=== PATIENT | male | born 1985 | race American Indian/Alaskan Native ===

== ENCOUNTER 2016-11-02 10:31 | Inpatient (IN) | payer SELFPAY ==
[2016-11-02] MEDS ORDERED: DUONEB 0.5 MG-3 MG/3 ML SOLN IH ONE ×3 (10:51→16:40)
[2016-11-02] MEDS ORDERED: PROVENTIL IH ONE ×2 (11:26→11:31)
[2016-11-02] MEDS ORDERED: ATROVENT IH ONE ×3 (11:26→11:46)
[2016-11-02 12:04] LABS: Basophils % (Auto) 0.5 % (0.0-1.8); Eosinophils % (Auto) 8.8 % (0.0-4.3); Hematocrit 52.4 % (35.5-45.6); Mean Corpuscular HGB Conc 32 % (32-34); Mean Corpuscular Hemoglobin 27 pg (28-32); Mean Corpuscular Volume 83 fl (84-94); Platelet Count 261 K/mm3 (140-440); Red Blood Count 6.33 M/mm3 (3.65-5.03); Red Cell Distribution Width 13.5 % (13.2-15.2)
[2016-11-02 12:12] LABS: Blood Urea Nitrogen 12 mg/dL (9-20); Calcium 9.4 mg/dL (8.4-10.2); Carbon Dioxide 21 mmol/L (22-30); Glucose 106 mg/dL (75-100)
--- NOTE | 2016-11-02 12:29 | XRay Report ---
Chest 2 views: History: Shortness of breath. Findings: Normal cardiomediastinal silhouette. Trachea is midline. No consolidation, pneumothorax or pleural effusion. Impression: No acute cardiopulmonary findings.
[2016-11-02 12:33] LABS: Anion Gap 21 mmol/L; Chloride 105.3 mmol/L (98-107); Potassium 4.1 mmol/L (3.6-5.0); Sodium 143 mmol/L (137-145)
--- NOTE | 2016-11-02 13:30 | Emergency Department Report ---
ED General Adult HPI - General Chief complaint: Adult Asthma Stated complaint: RUSSEL/DIFF WALKING/JITTERS Time Seen by Provider: 11/02/16 13:27 Source: patient Mode of arrival: Ambulatory Limitations: No Limitations - History of Present Illness Initial comments: The patient states that he has been wheezing for the past few days. He stated that he "inhaled some pollen" on night. By Friday morning he was wheezing. He complains of chest tightness that is associated with his wheezing and alleviated by nebulized therapy. His son has a nebulizer which she has been using. He has a history of asthma himself but has never been admitted to the hospital. As far as he knows he has never had a prior EKG. He does not complain of tightness at this time or any time in excess of his wheezing. He has no radiating chest pain and no pleuritic pain. Denies any recent travel leg swelling or pain. He states that he has been coughing up yellow to green sputum. He denies hemoptysis. -: Gradual Location: chest Radiation: non-radiation Quality: other Consistency: now resolved Improves with: none Worsens with: none Associated Symptoms: cough, other (wheezing) Treatments Prior to Arrival: none - Related Data Allergies Allergy/AdvReac Type Severity Reaction Status Date / Time No Known Allergies Allergy Unverified 11/02/16 10:41 ED Review of Systems ROS: Stated complaint: RUSSEL/DIFF WALKING/JITTERS Other details as noted in HPI Constitutional: denies: chills, fever Eyes: denies: eye pain, eye discharge, vision change ENT: denies: ear pain, throat pain Respiratory: cough, shortness of breath, wheezing Cardiovascular: as per HPI, chest pain. denies: palpitations Endocrine: no symptoms reported Gastrointestinal: denies: abdominal pain, nausea, diarrhea Genitourinary: denies: urgency, dysuria Musculoskeletal: denies: back pain, joint swelling, arthralgia Skin: denies: rash, lesions Neurological: denies: headache, weakness, paresthesias Psychiatric: denies: anxiety, depression Hematological/Lymphatic: denies: easy bleeding, easy bruising ED Past Medical Hx - Past Medical History Hx Asthma: Yes - Surgical History Past Surgical History?: No - Social History Smoking Status: Never Smoker Substance Use Type: None ED Physical Exam - General Limitations: No Limitations General appearance: alert, in no apparent distress - Head Head exam: Present: atraumatic, normocephalic - Eye Eye exam: Present: normal appearance, PERRL, EOMI. Absent: scleral icterus - ENT ENT exam: Present: mucous membranes moist - Neck Neck exam: Present: normal inspection - Respiratory Respiratory exam: Present: wheezes (one plus bilaterally normal work of breathing). Absent: respiratory distress, accessory muscle use - Cardiovascular Cardiovascular Exam: Present: regular rate, normal rhythm. Absent: systolic murmur, diastolic murmur, rubs, gallop - GI/Abdominal GI/Abdominal exam: Present: soft, normal bowel sounds. Absent: distended, tenderness, guarding, rebound, rigid - Rectal Rectal exam: Present: deferred - Extremities Exam Extremities exam: Present: normal inspection. Absent: tenderness, pedal edema, calf tenderness - Back Exam Back exam: Present: normal inspection. Absent: CVA tenderness (R), CVA tenderness (L) - Neurological Exam Neurological exam: Present: alert, oriented X3, CN II-XII intact. Absent: motor sensory deficit - Psychiatric Psychiatric exam: Present: normal affect, normal mood - Skin Skin exam: Present: warm, dry, intact, normal color. Absent: rash ED Course Vital Signs 11/02/16 11/02/16 11/02/16 10:41 11:23 11:32 Temperature 98.1 F Pulse Rate 101 H Pulse Rate [ 102 H 103 H Anterior Bilateral Throughout] Pulse Rate [ 102 H 103 H Posterior Bilateral Throughout] Respiratory 24 Rate Respiratory 20 20 Rate [Anterior Bilateral Throughout] Respiratory 20 20 Rate [Posterior Bilateral Throughout] Blood Pressure 135/92 O2 Sat by Pulse 95 Oximetry 11/02/16 11/02/16 11:38 13:15 Temperature Pulse Rate Pulse Rate [ 103 H 112 H Anterior Bilateral Throughout] Pulse Rate [ 103 H 112 H Posterior Bilateral Throughout] Respiratory Rate Respiratory 20 20 Rate [Anterior Bilateral Throughout] Respiratory 20 20 Rate [Posterior Bilateral Throughout] Blood Pressure O2 Sat by Pulse Oximetry - Reevaluation(s) Reevaluation #1: Patient did have some degree of P pulmonale. Pulmonary hypertension is possibility. He has not been given steroids to my encounter. He was given IV Solu-Medrol as well as acne seems sulfate. He is admitted by Dr. Arellano to the hospitalist service. I also did order an echocardiogram and consideration of his EKG findings. Birney is somewhat right-sided. His chest x-ray did not show anything acute. He was given 1 dose of Levaquin. He is appropriate for admission to the medical floor. He is admitted in stable condition. 11/02/16 14:14 ED Medical Decision Making - Lab Data Result diagrams: 11/02/16 11:43 11/02/16 11:43 - EKG Data -: EKG Interpreted by Me EKG shows normal: sinus rhythm Rate: tachycardia - EKG Data Interpretation: no acute changes, other (P pulmonale borderline right axis) - Radiology Data interpreted by me: Chest x-ray showed no acute process Critical care attestation.: If time is entered above; I have spent that time in minutes in the direct care of this critically ill patient, excluding procedure time. ED Disposition Clinical Impression: Exacerbation of asthma Acute bronchitis Qualifiers: Bronchitis organism: unspecified organism Qualified Code(s): J20.9 - Acute bronchitis, unspecified Disposition: OP ADMITTED IP TO THIS HOSP Is pt being admited?: Yes Does the pt Need Aspirin: Yes Instructions: Acute Bronchitis (ED) Time of Disposition: 14:20
[2016-11-02] MEDS ORDERED: NACL 0.9% 1000 ML 1,000 ML IV ONE (13:39)
[2016-11-02] MEDS ORDERED: MAGNESIUM SULFATE 2GM/50ML 2 GM/50 ML BAG IV ONE (13:39)
[2016-11-02] MEDS ORDERED: LEVAQUIN 500MG/100ML 500 MG/100 ML BAG IV ONE (13:39)
[2016-11-02] MEDS ORDERED: MILK OF MAGNESIA PO PRN (21:03)
[2016-11-02] MEDS ORDERED: DULCOLAX PR PRN (21:03)
[2016-11-02] MEDS ORDERED: ZOFRAN IV PRN (21:03)
--- NOTE | 2016-11-02 21:03 | History and Physical Report ---
History of Present Illness Date of examination: 11/02/16 Date of admission: 11/02/16 17:57 Chief complaint: Increasing SOB and wheezing for 0ne week. History of present illness: 31 y/o AAM with Asthma presents to ER with Increasing wheezing and SOB.Patient has been using his son's nebulizer with no relief.No fever or chills.Attribues to pollen exposure.Cough productive of mucoid sputum.In the ED patient had some response but was still wheezing. Never hospitalized or intubated because of Asthma. Past History Past Medical History: other (Asthma) Past Surgical History: No surgical history Social history: lives with family. denies: smoking, alcohol abuse Family history: no significant family history Medications and Allergies Allergies Allergy/AdvReac Type Severity Reaction Status Date / Time No Known Allergies Allergy Unverified 11/02/16 10:41 Home Medications Medication Instructions Recorded Confirmed Last Taken Type No Known Home Medications [No 11/02/16 11/02/16 Unknown History Reported Home Medications] Review of Systems All systems: negative Constitutional: no weight loss, no weight gain Ears, nose, mouth and throat: no hoarseness, no sore throat, no swelling in mouth Cardiovascular: no chest pain, no orthopnea, no palpitations, no rapid/ irregular heart beat, no syncope, no lightheadedness, no shortness of breath Respiratory: cough with sputum, congestion, wheezing Gastrointestinal: no abdominal pain, no nausea, no vomiting, no diarrhea, no constipation Genitourinary Male: no dysuria, no hematuria, no flank pain, no discharge, no urinary frequency, no urinary hesitancy Musculoskeletal: no neck stiffness, no neck pain Integumentary: no rash, no pruritis, no redness, no sores, no wounds, no jaundice, no boils, no blisters Neurological: no parathesias, no numbness, no seizures, no syncope, no convulsions, no gait dysfunction, no paralysis Psychiatric: no anxiety, no depression Endocrine: no cold intolerance, no heat intolerance, no polyphagia, no excessive thirst, no polydipsia, no polyuria, no nocturia Hematologic/Lymphatic: no easy bruising, no easy bleeding Allergic/Immunologic: allergic rhinitis, wheezing, no urticaria Exam - Physical Exam Narrative exam: Well developed well nourished male in slight resp distress - Constitutional Vitals: Temp Pulse Resp BP Pulse Ox 98.9 F 100 H 20 119/53 97 11/02/16 15:01 11/02/16 16:58 11/02/16 16:58 11/02/16 20:10 11/02/16 20:10 General appearance: Present: no acute distress, well-nourished - EENT Eyes: Present: PERRL ENT: hearing intact, clear oral mucosa - Neck Neck: Present: supple, normal ROM - Respiratory Respiratory effort: normal Respiratory: bilateral: rhonchi, wheezing - Cardiovascular Heart rate: 80 Rhythm: regular Heart Sounds: Present: S1 & S2. Absent: rub, click - Extremities Extremities: pulses symmetrical, No edema Peripheral Pulses: within normal limits - Abdominal General gastrointestinal: Present: soft, non-tender, non-distended, normal bowel sounds Male genitourinary: Present: normal - Rectal Rectal Exam: deferred - Integumentary Integumentary: Present: clear, warm, dry - Musculoskeletal Musculoskeletal: gait normal, strength equal bilaterally - Psychiatric Psychiatric: appropriate mood/affect, intact judgment & insight - Neurologic Neurologic: CNII-XII intact, moves all extremities - Allied Health Allied health notes reviewed: nursing Results - Labs CBC & Chem 7: 11/02/16 11:43 11/02/16 11:43 Labs: Laboratory Last Values WBC 7.0 K/mm3 (4.5-11.0) 11/02/16 11:43 RBC 6.33 M/mm3 (3.65-5.03) H 11/02/16 11:43 Hgb 17.0 gm/dl (11.8-15.2) H 11/02/16 11:43 Hct 52.4 % (35.5-45.6) H 11/02/16 11:43 MCV 83 fl (84-94) L 11/02/16 11:43 MCH 27 pg (28-32) L 11/02/16 11:43 MCHC 32 % (32-34) 11/02/16 11:43 RDW 13.5 % (13.2-15.2) 11/02/16 11:43 Plt Count 261 K/mm3 (140-440) 11/02/16 11:43 Lymph % (Auto) 23.6 % (13.4-35.0) 11/02/16 11:43 [place] % (Auto) 11.8 % (0.0-7.3) H 11/02/16 11:43 Eos % (Auto) 8.8 % (0.0-4.3) H 11/02/16 11:43 Baso % (Auto) 0.5 % (0.0-1.8) 11/02/16 11:43 Lymph # 1.6 K/mm3 (1.2-5.4) 11/02/16 11:43 [place] # 0.8 K/mm3 (0.0-0.8) 11/02/16 11:43 Eos # 0.6 K/mm3 (0.0-0.4) H 11/02/16 11:43 Baso # 0.0 K/mm3 (0.0-0.1) 11/02/16 11:43 Seg Neutrophils % 55.3 % (40.0-70.0) 11/02/16 11:43 Seg Neutrophils # 3.9 K/mm3 (1.8-7.7) 11/02/16 11:43 Sodium 143 mmol/L (137-145) 11/02/16 11:43 Potassium 4.1 mmol/L (3.6-5.0) 11/02/16 11:43 Chloride 105.3 mmol/L (98-107) 11/02/16 11:43 Carbon Dioxide 21 mmol/L (22-30) L 11/02/16 11:43 Anion Gap 21 mmol/L 11/02/16 11:43 BUN 12 mg/dL (9-20) 11/02/16 11:43 Creatinine 1.1 mg/dL (0.8-1.5) 11/02/16 11:43 Estimated GFR > 60 ml/min 11/02/16 11:43 BUN/Creatinine Ratio 10.90 % 11/02/16 11:43 Glucose 106 mg/dL (75-100) H 11/02/16 11:43 Calcium 9.4 mg/dL (8.4-10.2) 11/02/16 11:43 Troponin T < 0.010 ng/mL (0.00-0.029) 11/02/16 11:43 Short CBC 11/02/16 Range/Units 11:43 WBC 7.0 (4.5-11.0) K/mm3 Hgb 17.0 H (11.8-15.2) gm/dl Hct 52.4 H (35.5-45.6) % Plt Count 261 (140-440) K/mm3 BMP 11/02/16 11:43 Sodium 143 Potassium 4.1 Chloride 105.3 Carbon Dioxide 21 L BUN 12 Creatinine 1.1 Glucose 106 H Calcium 9.4 Cardiac Enzymes 11/02/16 Range/Units 11:43 Troponin T < 0.010 (0.00-0.029) ng/mL - Imaging and Cardiology EKG: report reviewed (R axis deviation ??P pulmonale) Chest x-ray: report reviewed (NAF) Assessment and Plan Advance Directives: Yes (Full code) VTE prophylaxis?: Chemical Plan of care discussed with patient/family: Yes - Patient Problems (1) Exacerbation of asthma Current Visit: Yes Status: Acute Plan to address problem: Iv Levaquin +IV solumedrol + Albuterol neb treatments round the clock and Prn. Patient is responding well. (2) Acute bronchitis Current Visit: Yes Status: Acute Qualifiers: Bronchitis organism: unspecified organism Qualified Code(s): J20.9 - Acute bronchitis, unspecified Plan to address problem: IV Levaquin 750 mg q 24 ordered (3) Right ventricular hypertrophy by electrocardiogram Current Visit: Yes Status: Chronic Plan to address problem: Per ER physian.Ordered ECHO to rule out pulmonary HTN (4) DVT prophylaxis Current Visit: Yes Status: Acute Plan to address problem: On Lovenox
[2016-11-02] MEDS ORDERED: PROVENTIL IH PRN (21:05)
[2016-11-02] MEDS: PROVENTIL IH SCH (21:59)
[2016-11-02] MEDS ORDERED: D5NS 1,000 ML IV SCH (22:00)
[2016-11-02] MEDS: LEVAQUIN 750MG/150ML 750 MG/150 ML BAG IV SCH (22:56)
[2016-11-03] MEDS: TYLENOL PO PRN ×2 (00:42→09:05)
[2016-11-03] MEDS: PROVENTIL IH SCH ×4 (02:41→20:13)
[2016-11-03] MEDS: LEVAQUIN 750MG/150ML 750 MG/150 ML BAG IV SCH (09:06)
--- NOTE | 2016-11-03 15:37 | Progress Note ---
Assessment and Plan Assessment and plan: Patient is a 31 y/o AAM with Asthma presents to ER with Increasing wheezing and SOB.Patient has been using his son's nebulizer with no relief.No fever or chills. He Attribues this exacerbation to pollen exposure.Cough productive of mucoid sputum. In the ED patient had some response but was still wheezing. Never hospitalized or intubated because of Asthma. * Asthma exacerbation * Sinus tachycardia * LVH rule out pulmonary hypertension * Microcytosis * Polycythemia Plan * Continue IV steroids tapered dose * Discontinue IV fluids * Await echocardiogram * Recheck CBC in a.m. * Continue oxygen and wean as tolerated * DVT and GI prophylaxis * Plan of care discussed with the patient detail * If improved despite discharge in a.m. History Interval history: Follow-up asthma exacerbation Patient seen and examined this morning in no acute distress although still with some wheezing and racing heart beats. Denies any chest pain, nausea, vomiting, diarrhea No fever noted blood pressure controlled No adverse events reported to me by nursing staff Hospitalist Physical - Physical exam Narrative exam: VITAL SIGNS: Reviewed. GENERAL: The patient appeared well nourished and normally developed. Otherwise lethargic Vital signs as documented. HEAD: No signs of head trauma. EYES: Pupils are equal. Extraocular motions intact. EARS: Hearing grossly intact. MOUTH: Oropharynx is normal. NECK: No adenopathy, no JVD. CHEST: Chest with wheezing bilaterally. Expiratory greater than inspiratory CARDIAC: Tachycardic. S1 and S2, without murmurs, gallops, or rubs. VASCULAR: No Edema. Peripheral pulses normal and equal in all extremities. ABDOMEN: Soft, without detectable tenderness. No sign of distention. No rebound or guarding, and no masses palpated. Bowel Sounds normal. MUSCULOSKELETAL: Good range of motion of all major joints. Extremities without clubbing, cyanosis or edema. NEUROLOGIC EXAM: Alert and oriented x 3. No focal sensory or strength deficits. Speech normal. Follows commands. PSYCHIATRIC: Mood normal. SKIN: No rash or lesions. - Constitutional Vitals: Temp Pulse Resp BP Pulse Ox 98.3 F 99 H 18 140/80 95 11/03/16 08:25 11/03/16 13:42 11/03/16 13:42 11/03/16 08:25 11/03/16 08:51 General appearance: Present: no acute distress, well-nourished Results - Labs CBC & Chem 7: 11/02/16 11:43 11/02/16 11:43 Labs: Laboratory Last Values WBC 7.0 K/mm3 (4.5-11.0) 11/02/16 11:43 RBC 6.33 M/mm3 (3.65-5.03) H 11/02/16 11:43 Hgb 17.0 gm/dl (11.8-15.2) H 11/02/16 11:43 Hct 52.4 % (35.5-45.6) H 11/02/16 11:43 MCV 83 fl (84-94) L 11/02/16 11:43 MCH 27 pg (28-32) L 11/02/16 11:43 MCHC 32 % (32-34) 11/02/16 11:43 RDW 13.5 % (13.2-15.2) 11/02/16 11:43 Plt Count 261 K/mm3 (140-440) 11/02/16 11:43 Lymph % (Auto) 23.6 % (13.4-35.0) 11/02/16 11:43 [place] % (Auto) 11.8 % (0.0-7.3) H 11/02/16 11:43 Eos % (Auto) 8.8 % (0.0-4.3) H 11/02/16 11:43 Baso % (Auto) 0.5 % (0.0-1.8) 11/02/16 11:43 Lymph # 1.6 K/mm3 (1.2-5.4) 11/02/16 11:43 [place] # 0.8 K/mm3 (0.0-0.8) 11/02/16 11:43 Eos # 0.6 K/mm3 (0.0-0.4) H 11/02/16 11:43 Baso # 0.0 K/mm3 (0.0-0.1) 11/02/16 11:43 Seg Neutrophils % 55.3 % (40.0-70.0) 11/02/16 11:43 Seg Neutrophils # 3.9 K/mm3 (1.8-7.7) 11/02/16 11:43 Sodium 143 mmol/L (137-145) 11/02/16 11:43 Potassium 4.1 mmol/L (3.6-5.0) 11/02/16 11:43 Chloride 105.3 mmol/L (98-107) 11/02/16 11:43 Carbon Dioxide 21 mmol/L (22-30) L 11/02/16 11:43 Anion Gap 21 mmol/L 11/02/16 11:43 BUN 12 mg/dL (9-20) 11/02/16 11:43 Creatinine 1.1 mg/dL (0.8-1.5) 11/02/16 11:43 Estimated GFR > 60 ml/min 11/02/16 11:43 BUN/Creatinine Ratio 10.90 % 11/02/16 11:43 Glucose 106 mg/dL (75-100) H 11/02/16 11:43 Calcium 9.4 mg/dL (8.4-10.2) 11/02/16 11:43 Troponin T < 0.010 ng/mL (0.00-0.029) 11/02/16 11:43 - Imaging and Cardiology Chest x-ray: image reviewed (no acute pathology)
[2016-11-04 05:54] LABS: Hematocrit 47.5 % (35.5-45.6); Hemoglobin 15.2 gm/dl (11.8-15.2); Mean Corpuscular HGB Conc 32 % (32-34); Mean Corpuscular Hemoglobin 26 pg (28-32); Mean Corpuscular Volume 82 fl (84-94); Platelet Count 289 K/mm3 (140-440); Red Blood Count 5.77 M/mm3 (3.65-5.03); Red Cell Distribution Width 13.7 % (13.2-15.2)
--- NOTE | 2016-11-04 08:15 | Discharge Summary ---
Providers - Providers Date of Admission: 11/02/16 17:57 Date of discharge: 11/04/16 Attending physician: LAN CROWE MD Primary care physician: [employer] Hospitalization Reason for admission: asthma exacerbation Condition: Stable Hospital course: Patient is a 31 y/o AAM with Asthma presents to ER with Increasing wheezing and SOB.Patient has been using his son's nebulizer with no relief.No fever or chills. He Attribues this exacerbation to pollen exposure.Cough productive of mucoid sputum. In the ED patient had some response but was still wheezing. Never hospitalized or intubated because of Asthma. She was started on steroid treatments with good improvement. Today he was still wheezing in the morning but after this afternoon and ambulation and he felt strong enough to be discharged. I have also reevaluated the patient and his wheezing has decreased significantly he is stable at this point to discharge regarding home on a tapering dose of steroids and also on a halo which have discussed the use with him. Discharge diagnosis * Asthma exacerbation * Sinus tachycardia * LVH rule out pulmonary hypertension * Microcytosis * Polycythemia Disposition: DISCHARGED TO HOME OR SELFCARE Time spent for discharge: 35 mins Core Measure Documentation - Palliative Care Palliative Care/ Comfort Measures: Not Applicable - Core Measures Any of the following diagnoses?: none - VTE Discharge Requirements Deep Vein Thrombosis/Pulmonary Embolism Present on Admission: No Exam - Physical Exam Narrative exam: VITAL SIGNS: Reviewed. GENERAL: The patient appeared well nourished and normally developed. Otherwise lethargic Vital signs as documented. HEAD: No signs of head trauma. EYES: Pupils are equal. Extraocular motions intact. EARS: Hearing grossly intact. MOUTH: Oropharynx is normal. NECK: No adenopathy, no JVD. CHEST: Chest with wheezing bilaterally. Expiratory greater than inspiratory CARDIAC: Tachycardic. S1 and S2, without murmurs, gallops, or rubs. VASCULAR: No Edema. Peripheral pulses normal and equal in all extremities. ABDOMEN: Soft, without detectable tenderness. No sign of distention. No rebound or guarding, and no masses palpated. Bowel Sounds normal. MUSCULOSKELETAL: Good range of motion of all major joints. Extremities without clubbing, cyanosis or edema. NEUROLOGIC EXAM: Alert and oriented x 3. No focal sensory or strength deficits. Speech normal. Follows commands. PSYCHIATRIC: Mood normal. SKIN: No rash or lesions. - Constitutional Vitals: Temp Pulse Resp BP Pulse Ox 97.8 F 80 22 143/67 97 11/04/16 05:39 11/04/16 05:39 11/04/16 05:39 11/04/16 05:39 11/04/16 00:43 Plan Activity: advance as tolerated, fall precautions Diet: regular Special Instructions: smoking cessation Follow up with: PRIMARY CARE, [Primary Care Provider] - 7 Days Prescriptions: ALBUTEROL Inhaler [ProAir HFA Inhaler] 2 puff IH QID PRN 30 Days PRN Reason: Shortness Of Breath Levofloxacin [Levaquin] 750 mg PO QDAY #7 tablet predniSONE [Deltasone] 10 mg PO .TAPER #48 tab
[2016-11-04] MEDS: PROVENTIL IH SCH ×2 (08:34→13:22)
--- NOTE | 2016-11-04 09:51 | Admit Criteria Form ---
Admission Criteria Documentation: ASTHMA Clinical Indications for Admission to Inpatient Care (Place 'X' for any and all applicable criteria): Admission is indicated for ANY ONE of the following (1)(2)(3)(4)(5): [ ]I. Absent or markedly diminished breath sounds (silent chest) [ ]II. Oxygen saturation < 92% [ ]III. PaCO2 = / > 42 mm Hg (5.6 kPa) [ ]IV. Peak expiratory flow rate < 40% of predicted or personal best after treatment. [ ]V. Peak expiratory flow rate < 33% of predicted or personal before after treatment [ ]. Change in mental status [ ]VII. Ventilatory support required [ ]VIII. PaO2 < 60 mm Hg (8.0 kPa) [ ]IX. Cyanosis [ ]X. Cardiac dysrhythmia (e.g., bradycardia) [ ]XI. Hemodynamic instability [ ]XII. Radiographic evidence of complication requiring inpatient treatment (e.g., pneumonia, pneumothorax) [X]XIII. Inpatient admission required rather than observation care (also use Asthma: Observation Care guideline as appropriate) because of ANY ONE of the following: [ ]a) Respiratory finding that is severe or persistent (eg, dyspnea, tachypnea, accessory muscle use) [ ]b) Airflow measurements less than 60% of predicted or personal best that persist (e.g., over 24 hours) or worsen despite treatments [X]c) Supplemental oxygen or respiratory treatments for over 24 hours that are performable only in acute inpatient setting [ ]d) Other condition, treatment or monitoring requiring inpatient admission. Extended stay beyond goal length of stay may be needed for (26)(27)(28): [ ]a) Severe respiratory failure (23) (29) (30) [ ]b) Secondary causes and complications (25) [ ]c) Status asthmaticus [ ]d) Chronic obstructive asthma [ ]e) Older patients (29) [ ]f) Slow resolution [ ]g) Clinically significant exacerbation of comorbidities (eg, mechelle. heart failure, atrial fibrillation) The original [employer] content created by [employer] has been revised. The portions of the content which have been revised are identified through the use of italic text or in bold, and [employer] has neither reviewed nor approved the modified material. All other unmodified content is copyright [employer] Please see references footnoted in the original [facility] edition 2016 Admission Criteria Met: Yes
[2016-11-04] MEDS: LEVAQUIN 750MG/150ML 750 MG/150 ML BAG IV SCH (09:59)
[2016-11-04 17:46] VITALS: BP 123/92
== END 2016-11-04 20:04 | disposition home or self-care (01) | DRG 202 ==
LOC: ED 10:31 → 3A 17:57
PROVIDERS: ADMIT Internal Medicine; ATTEND Internal Medicine
DX: J45.901 Unspecified asthma with (acute) exacerbation (principal); I50.1 Left ventricular failure, unspecified; J20.9 Acute bronchitis, unspecified; I51.7 Cardiomegaly; D75.1 Secondary polycythemia; I27.2 Other secondary pulmonary hypertension
CPT/HCPCS: 36415; 71020; 80048; 84484; 85025; 85027; 93005; 93010; 93306; 94640; 94644; 94760; 96365; 96366; 96375; J1956; J2920; J2930; J3475; J7030; J7042